=== PATIENT | male | born 1980 | race Asian ===

== ENCOUNTER 2017-05-25 17:59 | Emergency (ER) | payer MEDICAID ==
[~2017-05-25] VITALS: Ht 170.2 cm; Wt 87.2 kg
[2017-05-25 19:00] LABS: HEMATOCRIT 46.1 % (39.2-51.8); HEMOGLOBIN 15.6 g/dL (13.7-18.0)
[2017-05-25] MEDS ORDERED: SODIUM CHLORIDE FLUSH 10ML SYR IVF ONE (19:00)
[2017-05-25] MEDS ORDERED: SODIUM CHLORIDE 0.9% 1,000ML IVBOLUS ONE (19:00)
[2017-05-25] MEDS ORDERED: KETOROLAC 30 MG/1 ML IVPush ONE (19:00)
[2017-05-25 19:09] LABS: BLOOD UREA NITROGEN 15 mg/dL (7-18)
[2017-05-25 19:12] LABS: ASPARTATE AMINO TRANSFERASE 37 U/L (15-37)
[2017-05-25] MEDS ORDERED: KETOROLAC 30 MG/1 ML ONE (19:44)
[2017-05-25] MEDS ORDERED: ONDANSETRON 2MG/ML, 2ML IVPush ONE (20:30)
[2017-05-25] MEDS ORDERED: MORPHINE SULFATE 4 MG/ML, 1ML IVPush ONE (20:30)
[2017-05-25 21:26] VITALS: BP 127/78
== END 2017-05-25 21:27 | disposition home or self-care (01) ==
LOC: ED 20:29
DX: N20.1 Calculus of ureter (principal); R31.0 Gross hematuria; Z87.442 Personal history of urinary calculi
CPT/HCPCS: 36415; 80053; 81001; 85025; 87086; 96361; 96374; 99284; J1885; J7030

== ENCOUNTER → 2017-05-25 | Outpatient (CLI) | payer MEDICAID | END | disposition home or self-care (01) | LOC: RAD 11:26 | PROVIDERS: ATTEND Urology | DX: N20.0 Calculus of kidney (principal); N20.1 Calculus of ureter; Z96.0 Presence of urogenital implants | CPT/HCPCS: 74000 ==

== ENCOUNTER 2017-06-03 23:43 | Emergency (ER) | payer MEDICAID ==
[~2017-06-03] VITALS: Ht 170.2 cm; Wt 88.7 kg
[2017-06-04 00:20] LABS: MICROSCOPIC INDICATED
[2017-06-04] MEDS ORDERED: FOLI0.4T2 PO (02:01)
[2017-06-04] MEDS ORDERED: ADAL20KI EXT (02:01)
[2017-06-04] MEDS ORDERED: MULT-412 PO (02:01)
[2017-06-04] MEDS ORDERED: SODIUM CHLORIDE 0.9% 1,000ML IVBOLUS ONE (02:30)
[2017-06-04] MEDS ORDERED: MORPHINE SULFATE 4 MG/ML, 1ML IVPush PRN (02:30)
[2017-06-04] MEDS ORDERED: ONDANSETRON 2MG/ML, 2ML IVPush ONE (02:30)
[2017-06-04] MEDS ORDERED: SODIUM CHLORIDE FLUSH 10ML SYR IVF ONE (02:30)
[2017-06-04] MEDS ORDERED: CEFTRIAXONE PMX 1GM/50ML 50 ML IV ONE (02:30)
[2017-06-04] MEDS ORDERED: KETOROLAC 30 MG/1 ML IVPush ONE (02:30)
[2017-06-04 02:59] LABS: BASOPHILS # (AUTO) 0.04 x10^3/uL (0-0.1); BASOPHILS % (AUTO) 1 % (0-1); EOSINOPHILS # (AUTO) 0.39 x10^3/uL (0-0.4); EOSINOPHILS % (AUTO) 4 % (1-7); LYMPHOCYTES # (AUTO) 4.29 x10^3/uL (1-3.4); LYMPHOCYTES % (AUTO) 47 % (22-44); MD NO; MEAN CORPUSCULAR HEMOGLOBIN 30.1 pg (27.5-34.5); MEAN CORPUSCULAR HGB CONC 33.8 g/dL (33.2-36.2); MEAN CORPUSCULAR VOLUME 89.1 fL (81-97); MEAN PLATELET VOLUME 8.2 fL (7.4-10.4); MONOCYTES # (AUTO) 0.54 x10^3/uL (0.2-0.8); MONOCYTES % (AUTO) 6 % (2-9); NEUTROPHILS # (AUTO) 3.93 x10^3/uL (1.8-6.8); NEUTROPHILS % (AUTO) 43 % (42-75); PLATELET COUNT 279 x10^3/uL (130-400); RED BLOOD COUNT 4.96 x10^6/uL (4.38-5.82); RED CELL DISTRIBUTION WIDTH 13.8 % (9.4-14.8)
[2017-06-04 03:08] LABS: ALBUMIN 3.3 g/dL (3.4-5.0); ANION GAP 5 mmol/L (5-15); CALCIUM 8.7 mg/dL (8.5-10.1); CHLORIDE 107 mmol/L (98-107); CREATININE 0.97 mg/dL (0.7-1.3)
[2017-06-04] MEDS ORDERED: KETOROLAC 30 MG/1 ML ONE (03:25)
[2017-06-04] MEDS ORDERED: MORPHINE SULFATE 4 MG/ML, 1ML ONE (03:25)
[2017-06-04] MEDS ORDERED: ONDANSETRON 2MG/ML, 2ML ONE (03:25)
[2017-06-04] MEDS ORDERED: OXYB5TAB7 PO (03:32)
[2017-06-04] MEDS ORDERED: TAMS0.4C2 PO (03:32)
[2017-06-04] MEDS ORDERED: IBUP200C5 PO (03:32)
[2017-06-04] MEDS ORDERED: PHEN-582 PO (03:33)
[2017-06-04 05:05] VITALS: BP 113/80
== END 2017-06-04 05:18 | disposition home or self-care (01) ==
LOC: ED 23:59
DX: R10.9 Unspecified abdominal pain (principal); R31.9 Hematuria, unspecified; F17.200 Nicotine dependence, unspecified, uncomplicated
CPT/HCPCS: 36415; 74000; 76770; 80048; 81001; 82040; 85025; 96361; 96374; 96375; 99285; J1885; J2405; J7030

== ENCOUNTER → 2017-06-16 | Outpatient (CLI) | payer MEDICAID ==
[~2017-06-16] MED LIST: ADAL20KI EXT; FOLI0.4T2 PO; IBUP200C5 PO; MULT-412 PO; OXYB5TAB7 PO; PHEN-582 PO; TAMS0.4C2 PO
== END | disposition home or self-care (01) ==
LOC: RAD 15:42
PROVIDERS: ATTEND Urology
DX: N20.1 Calculus of ureter (principal)
CPT/HCPCS: 74018

== ENCOUNTER 2017-06-17 05:23 | Day surgery (SDC) | payer MEDICAID ==
[~2017-06-17] VITALS: Ht 170.2 cm; Wt 85.4 kg
[2017-06-17 06:25] VITALS: BP 117/75
[2017-06-17] MEDS ORDERED: LACTATED RINGERS 1,000 ML IV SCH (06:41)
[2017-06-17] MEDS ORDERED: MIDAZOLAM 1 MG/ML, 2ML ONE (07:08)
[2017-06-17] MEDS ORDERED: FENTANYL PF 100 MCG/2ML ONE (07:09)
[2017-06-17] MEDS ORDERED: PHENYLEPHRINE 10 MG/ML ONE (07:50)
[2017-06-17] MEDS ORDERED: EPHEDRINE 50 MG/ML, 1ML ONE (07:50)
[2017-06-17] MEDS ORDERED: ONDANSETRON 2MG/ML, 2ML ONE (08:26)
[2017-06-17] MEDS ORDERED: DEXAMETHASONE 4 MG/ML, 1ML ONE (08:26)
[2017-06-17] MEDS ORDERED: GLYCOPYRROLATE 0.2MG/1ML, 5ML ONE (08:26)
[2017-06-17] MEDS ORDERED: SUCCINYLCHOLINE 20 MG/ML, 10ML ONE (08:26)
[2017-06-17] MEDS ORDERED: ROCURONIUM 10 MG/ML,10ML ONE (08:26)
[2017-06-17] MEDS ORDERED: CEFAZOLIN 1,000 MG ONE (08:26)
[2017-06-17] MEDS ORDERED: PROPOFOL 10 MG/ML, 20ML ONE (08:26)
[2017-06-17] MEDS ORDERED: NEOSTIGMINE 1 MG/ML, 10ML ONE (08:26)
[2017-06-17] MEDS ORDERED: FENTANYL PF 100 MCG/2ML IV PRN (08:30)
[2017-06-17] MEDS ORDERED: HYDROmorphone 1 MG/ML, 1ML IV PRN (08:30)
[2017-06-17] MEDS ORDERED: OXYcodone 5 MG/5 ML ORAL.SOL UDC PO PRN (08:30)
[2017-06-17] MEDS ORDERED: PROMETHAZINE 25 MG/ML, 1ML IV PRN (08:30)
[2017-06-17] MEDS ORDERED: ALBUTEROL SULFATE 2.5 MG/3 ML NPPB PRN (08:30)
[2017-06-17] MEDS ORDERED: MEPERIDINE/PF 25MG/0.5ML IVPush PRN (08:30)
[2017-06-17] MEDS ORDERED: LORazepam 2 MG/ML, 1ML IVPush PRN (08:30)
[2017-06-17] MEDS ORDERED: hydrALAzine 20 MG/ML, 1ML IV PRN (08:30)
[2017-06-17] MEDS ORDERED: LABETALOL 5MG/ML, 20ML IV PRN (08:30)
[2017-06-17] MEDS ORDERED: ACETAMINOPHEN 325 MG TABLET PO PRN (08:30)
[2017-06-17] MEDS ORDERED: MEPERIDINE/PF 50 MG/ML ONE (09:13)
[2017-06-17] MEDS ORDERED: OXYcodone 5 MG/5 ML ORAL.SOL UDC ONE (09:14)
[2017-06-17] MEDS ORDERED: ACETAMINOPHEN 650 MG/20.3 ML UDC ONE (09:14)
== END 2017-06-17 12:20 | disposition home or self-care (01) ==
LOC: OUT 05:23
PROVIDERS: ATTEND Urology
DX: N20.1 Calculus of ureter (principal)
CPT/HCPCS: 50590; 82360; 88300; C1769; J0690; J1100; J2175; J2250; J2370; J2405; J2704; J2710; J3010; J7120; J3490; J0330